=== PATIENT | female | born 1950 | race Caucasian/White ===

== ENCOUNTER 2024-01-23 15:46 | Emergency (ER) | payer OTHER ==
[2024-01-23] MEDS ORDERED: HYDROcodone/Acetaminophen 5/325 mg Tablet ONE (17:25)
== END 2024-01-23 16:43 | disposition home or self-care (01) ==
LOC: ERS 15:46
DX: S42.201A Unspecified fracture of upper end of right humerus, initial encounter for closed fracture (principal); V89.2XXA Person injured in unspecified motor-vehicle accident, traffic, initial encounter